=== PATIENT | male | born 1935 | race Caucasian/White ===

== ENCOUNTER → 2016-11-29 | Outpatient (CLI) | payer MEDICARE, OTHER ==
[~2016-11-29] MED LIST: 3N1 COMMODE MC; AMLO-147 PO; ASPI325T32 PO; LOSA50TA2 PO; NEBI5TAB9 PO; OXYC-481 PO; ROSU20TA PO; TRAM50TA2 PO; WALK1EAC23 MC
--- NOTE | 2016-11-29 15:00 | RADRPT ---
PROCEDURE: XR Right hip and pelvis. CLINICAL INDICATION: Right hip pain. Pelvic pain. Postop. TECHNIQUE: Three views. Frontal pelvis. Frontal and lateral right hip. COMPARISON: 04/26/2016. FINDINGS: There is no fracture or dislocation. The soft tissues are normal. There is a right hip total arthroplasty which appears satisfactory. There are moderate degenerative changes of the left hip with joint space narrowing and osteophytes. There is no lytic or blastic lesion. 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 IMPRESSION: 1. Satisfactory postoperative appearance of the right hip. 2. Moderate degenerative changes of the left hip. RPTAT: QQ .Hilton Lemons MD, MD Date Time Electronically viewed and signed by .Hilton Lemons MD, MD on 11/29/2016 15:00 .R/
== END | disposition home or self-care (01) ==
LOC: HKI 10:25
PROVIDERS: ATTEND Orthopaedic Surgery
DX: Z09 Encounter for follow-up examination after completed treatment for conditions other than malignant neoplasm (principal); Z96.641 Presence of right artificial hip joint
CPT/HCPCS: 73502; G0463